=== PATIENT | male | born 1970 | race Native Hawaiian/Other Pacific Islander ===

== ENCOUNTER 2021-03-13 18:36 | Emergency (ER) | payer OTHER ==
[~2021-03-13] VITALS: Ht 205.7 cm; Wt 108.9 kg
[2021-03-13 18:39] VITALS: TEMP 98.3
[2021-03-13] MEDS ORDERED: WARF10TA5 PO (18:54)
[2021-03-13 19:01] LABS: PLATELET COUNT 272 K/uL (142-355)
[2021-03-13 19:09] LABS: POTASSIUM 4.8 mmol/L (3.6-5.2)
[2021-03-13 19:26] LABS: PARTIAL THROMBOPLASTIN TIME 24.7 SECONDS (24.5-33.6)
[2021-03-13 20:42] VITALS: BP 151/70
== END 2021-03-13 20:42 | disposition still patient (30) ==
LOC: ED 18:36
PROVIDERS: Hospitalist
DX: Z86.711 Personal history of pulmonary embolism (principal); D68.61 Antiphospholipid syndrome; Z79.01 Long term (current) use of anticoagulants; Z20.822 Contact with and (suspected) exposure to COVID-19
CPT/HCPCS: 36415; 36600; 80053; 82550; 82805; 83880; 84484; 85027; 85379; 85610; 85730; 87635; 93005; 96360; 96372; 99284; J1650; Q9963; U0003

== ENCOUNTER 2021-04-14 01:08 | Emergency (ER) | payer OTHER ==
[~2021-04-14] VITALS: Ht 205.7 cm; Wt 108.4 kg
[~2021-04-14 01:08] MED LIST: WARF10TA5 PO
[2021-04-14 01:57] VITALS: BP 147/90; TEMP 98.2
== END 2021-04-14 01:57 | disposition home or self-care (01) ==
LOC: ED 01:08
DX: M27.3 Alveolitis of jaws (principal)
CPT/HCPCS: 99281

== ENCOUNTER 2021-07-12 10:02 | Outpatient (CLI) | payer BC | END 2021-07-12 19:42 | disposition home or self-care (01) | LOC: US 10:02 | PROVIDERS: ATTEND Physician Assistant Medical | DX: M79.604 Pain in right leg (principal); M79.605 Pain in left leg ==

== ENCOUNTER 2021-08-05 08:36 | Outpatient (CLI) | payer BC | END 2021-08-05 19:56 | disposition home or self-care (01) | LOC: CT 08:36 | PROVIDERS: ATTEND Physician Assistant Medical | DX: Z12.2 Encounter for screening for malignant neoplasm of respiratory organs (principal); F17.210 Nicotine dependence, cigarettes, uncomplicated ==

== ENCOUNTER 2022-02-06 16:49 | Emergency (ER) | payer BC ==
[~2022-02-06] VITALS: Ht 205.7 cm; Wt 117.9 kg
[2022-02-06 17:00] VITALS: BP 127/87; TEMP 98.4
[2022-02-06 18:02] LABS: PLATELET COUNT 173 K/uL (142-355)
[2022-02-06 18:36] LABS: POTASSIUM 4.6 mmol/L (3.6-5.2)
== END 2022-02-06 20:28 | disposition home or self-care (01) ==
LOC: ED 16:49
PROVIDERS: Emergency Medicine Emergency Medical Services
DX: R10.31 Right lower quadrant pain (principal)
CPT/HCPCS: 80048; 81002; 82150; 83690; 85027; 85610; 96360; 96361; 96374; 96375; 99283; 99284; J2405; J3490; Q9963

== ENCOUNTER 2022-11-13 20:37 | Observation (INO) | payer BC ==
[~2022-11-13] VITALS: Ht 205.7 cm; Wt 120.2 kg
[2022-11-13 21:00] VITALS: BP 104/71; TEMP 98.6
[2022-11-13 23:20] LABS: PLATELET COUNT 159 K/uL (142-355)
[2022-11-14 00:08] LABS: POTASSIUM 4.5 mmol/L (3.6-5.2)
[2022-11-14 01:00] VITALS: BP 145/102
[2022-11-14 03:22] LABS: PARTIAL THROMBOPLASTIN TIME 34.2 SECONDS (23.9-36.7)
[2022-11-14 05:14] VITALS: BP 129/86; TEMP 98.3; Ht 205.7 cm; Wt 120.2 kg
[2022-11-14 05:49] LABS: PLATELET COUNT 153 K/uL (142-355)
[2022-11-14 05:57] LABS: POTASSIUM 4.2 mmol/L (3.6-5.2)
[2022-11-14 08:00] VITALS: BP 128/73; TEMP 98.6
[2022-11-14] MEDS ORDERED: ELIQUIS5 MG PO ×2 (10:28→10:31)
== END 2022-11-14 13:53 | disposition home or self-care (01) ==
LOC: ED 20:37 → MED/SURG 11-14 03:46
PROVIDERS: Family Medicine; ADMIT Internal Medicine; ATTEND Internal Medicine
DX: M79.604 Pain in right leg (principal); I82.491 Acute embolism and thrombosis of other specified deep vein of right lower extremity; I26.99 Other pulmonary embolism without acute cor pulmonale; F17.210 Nicotine dependence, cigarettes, uncomplicated
CPT/HCPCS: 80048; 80053; 84484; 85027; 85379; 85610; 85730; 93005; 96361; 96372; 99221; 99283; G0378; J1650; J1885; Q9963